=== PATIENT | male | born 1980 | race Caucasian/White ===

== ENCOUNTER 2023-11-05 10:36 | Emergency (ER) | payer OTHER, MEDICAID, SELFPAY ==
[2023-11-05] VITALS (17 sets, daily range): BP systolic 135–156; BP diastolic 85–108; PULSE 54–102; RESP 16–18; TEMP 36.6; O2SAT 84–100; BMI 28.1
[2023-11-05] MEDS: DROPERIDOL 5 MG/2 ML VIAL 0.625 MG IV (12:26)
[2023-11-05] MEDS: SODIUM CHLORIDE 0.9% 1,000 ML 1000 ML IV (12:27)
[2023-11-05] MEDS: diphenhydrAMINE 50 MG/ML VIAL 25 MG IV (12:28)
[2023-11-05] MEDS: ACETAMINOPHEN 325 MG TABLET 975 MG PO (12:54)
[2023-11-05] MEDS: LORazepam 0.5 MG TABLET 1 MG PO (13:08)
[2023-11-05 13:21] LABS: RBC Urine 0-1/HPF (0-5/HPF); Urine Volume 10mL (spun)
[2023-11-05 13:22] LABS: Bacteria Urine Occasional (0-1); Mucus Urine 2+ (Negative); Squamous Epithelial Cell Urine 0-1 /HPF (0-5/HPF); WBC Urine 5-10/HPF (0-5/HPF)
--- NOTE | 2023-11-05 13:58 | ED_ITS ---
HPI - Headache General Chief Complaint: Headache Stated Complaint: Hurt Neck/Migraine Time Seen by Provider: 11/05/23 13:00 History of Present Illness HPI Narrative: 43-year-old man with a history of headaches comes in complaining of headache and neck pain. Says the neck pain has been ongoing for about 1 week, is not associated with trauma he has had no chiropractic manipulation. Headache got worse yesterday, noted at that time he also felt dizzy and felt like his eyes were ?crossing?. No visual changes no numbness or weakness or difficulty with speech associated with this. He has not been having fevers. He did have nausea and sweats when he had those symptoms yesterday, the dizziness has now resolved. He has not taking a blood thinner. He has been using ibuprofen for the pain and he reports he took several of them last night. He has not anticoagulated and says he does not have a primary care provider. Related Data Previous Rx's Medication Instructions Recorded lorazepam 0.5 mg tablet 0.5 mg PO TID PRN neck spasm #7 11/05/23 tabs Allergies Allergy/AdvReac Type Severity Reaction Status Date / Time No Known Drug Allergies Allergy Verified 11/05/23 12:19 Exam Narrative Exam Narrative: Alert, no acute distress HEENT: Normocephalic, atraumaitic moist mucus membranes, pupils were equal round and reactive extraocular movements are intact with no nystagmus Neck: Supple no midline tenderness, no cervical adenopathy, no carotid bruit, has some paraspinal spasm on the left side. Lungs: Clear to ascultaion, no respiratory distress Heart: Regular rhythm and rate no murmur Abdomen: Normal bowel sounds, soft and nontender Extremeties: Full range of motion no deformity Neuro: Alert and oriented, normal speech moves x4, speech is clear, [id number] is normal Initial Vital Signs Initial Vital Signs: Vital Signs Pulse Rate 65 11/05/23 10:42 Pulse Oximetry 99 11/05/23 10:42 Course Orders Ordered: ED Orders 11/05/23 12:30 Urine Culture Stat Urine Microscopic Stat 11/05/23 13:58 CT head/brain wo con Stat 11/05/23 14:42 CT angio head and neck Stat Discontinued Medications Acetaminophen (Acetaminophen 325 Mg Tablet) 975 mg PO NOW ONE Stop: 11/05/23 12:39 Last Admin: 11/05/23 12:54 Dose: 975 mg Documented By: RB Diphenhydramine HCl (Diphenhydramine 50 Mg/Ml Vial) 25 mg IV NOW ONE Stop: 11/05/23 12:14 Last Admin: 11/05/23 12:28 Dose: 25 mg Documented By: RB Droperidol (Droperidol 5 Mg/2 Ml Vial) 0.625 mg IV NOW ONE Stop: 11/05/23 12:14 Last Admin: 11/05/23 12:26 Dose: 0.625 mg Documented By: RB Sodium Chloride (Normal Saline 0.9%) 1,000 mls @ 1,000 mls/hr IV BOLUS ONE Stop: 11/05/23 13:12 Last Infusion: 11/05/23 13:35 Dose: Infused Documented By: Admin: 11/05/23 12:27 Dose: 1,000 mls/hr Documented By: RB Ketorolac Tromethamine (Ketorolac 30 Mg/Ml Vial) 15 mg IV NOW ONE Stop: 11/05/23 12:14 Last Admin: 11/05/23 12:35 Dose: Not Given Documented By: RB Lorazepam (Lorazepam 0.5 Mg Tablet) 1 mg PO NOW ONE Stop: 11/05/23 13:01 Last Admin: 11/05/23 13:08 Dose: 1 mg Documented By: RB Oxycodone HCl (Oxycodone Ir 5 Mg Tablet) 5 mg PO NOW ONE Stop: 11/05/23 16:37 Last Admin: 11/05/23 16:42 Dose: 5 mg Documented By: RB Vital Signs Vital signs: Vital Signs - 8 hr 11/05/23 10:42 11/05/23 10:43 11/05/23 10:43 Temperature Pulse Rate 65 63 Respiratory Rate Blood Pressure 135/91 H Pulse Oximetry 99 99 Oxygen Delivery Method 11/05/23 10:52 11/05/23 11:00 11/05/23 11:30 Temperature 97.8 F Pulse Rate 67 66 54 L Respiratory Rate 16 Blood Pressure 135/91 H Pulse Oximetry 99 99 99 Oxygen Delivery Method Room Air 11/05/23 12:00 11/05/23 12:00 11/05/23 12:30 Temperature Pulse Rate 69 Respiratory Rate Blood Pressure 135/90 146/97 H Pulse Oximetry 98 Oxygen Delivery Method 11/05/23 12:30 11/05/23 13:00 11/05/23 13:33 Temperature Pulse Rate 79 69 Respiratory Rate Blood Pressure Pulse Oximetry 100 100 98 Oxygen Delivery Method 11/05/23 13:34 11/05/23 13:34 11/05/23 13:35 Temperature Pulse Rate 74 68 Respiratory Rate 18 Blood Pressure 145/85 H 145/85 H Pulse Oximetry 98 98 Oxygen Delivery Method Room Air 11/05/23 14:51 11/05/23 14:53 11/05/23 14:53 Temperature Pulse Rate 70 Respiratory Rate Blood Pressure 156/108 H Pulse Oximetry 84 L 99 Oxygen Delivery Method 11/05/23 15:00 11/05/23 15:01 11/05/23 15:01 Temperature Pulse Rate 61 57 L Respiratory Rate Blood Pressure 138/88 Pulse Oximetry 97 97 Oxygen Delivery Method 11/05/23 15:39 11/05/23 15:39 11/05/23 16:00 Temperature Pulse Rate 60 102 H Respiratory Rate Blood Pressure 145/88 H Pulse Oximetry 100 100 Oxygen Delivery Method 11/05/23 16:00 Temperature Pulse Rate Respiratory Rate Blood Pressure 149/96 H Pulse Oximetry Oxygen Delivery Method MDM - Headache Lab Data Labs: Lab Results 11/05/23 Range/Units 12:30 Urine RBC 0-1/hpf (0-5/HPF) Urine WBC 5-10/hpf H (0-5/HPF) Ur Squamous Epith Cells 0-1 /hpf (0-5/HPF) Urine Bacteria Occasional (0-1) (None) Urine Mucus 2+ H (Negative) Vol Urine Centrifuged 10ml (spun) Urine Dip Bedside Urine Glucose Negative Bedside Urine Bilirubin - Negative Bedside Urine Ketone +/- 5 Urine Specific [place] 1.025 Bedside Urine Occult Blood - Negative Bedside Urine pH 6.0 Bedside Urine Protein - Negative Bedside Urine Urobilinogen - Negative Bedside Urine Nitrite - Negative Bedside Urine Leukocytes - Negative Esterase Imaging Data CT scan - head: My Impression: Independently reviewed, no acute hemorrhage possible old cerebellar stroke Radiologist's Impression: [address] [place] [id number] Scan Report Signed Patient: Moustapha Tang MR#: [id number] : 1980 Acct:[id number] Age/Sex: 43 / M Date of Service: 11/05/23 Loc: ED Accession Number: [id number] Procedure: CT head/brain wo con Ordering Provider: Saul Dunbar MD PROCEDURE: CT HEAD/BRAIN WO CON INDICATIONS: headache, severe TECHNIQUE: Noncontrast 4.5 mm thick angled axial sections acquired from the foramen magnum to the vertex, with coronal and sagittal reformats. For radiation dose reduction, the following was used: automated exposure control, adjustment of mA and/or kV according to patient size. COMPARISON: None. FINDINGS: Image quality: Diagnostic. Patient motion is noted. CSF spaces: Basal cisterns are patent. No extra-axial fluid collections. Ventricles are normal in size and shape. Brain: Suggestion of old infarction involving left cerebellum with moderate size area of encephalomalacia. No midline shift. No intracranial masses or hemorrhage. Salomon-white matter interface is normal. Skull and face: Calvarium and visualized facial bones are intact, without suspicious lesions. Sinuses: Visualized sinuses and mastoids are clear. IMPRESSION: 1. No CT evidence of acute intracranial abnormalities. 2. Suggestion of old infarction involving left inferior cerebellum with encephalomalacia. Dictated by: Anand Crain M.D. on 11/05/2023 at 14:33 Approved by: Anand Crain M.D. on 11/05/2023 at 14:34 CT angio head and neck: Radiologist's Impression: [place] [address] CT Scan Report Signed Patient: Moustapha Tang MR#: [id number] : 1980 Acct:[id number] Age/Sex: 43 / M Date of Service: 11/05/23 Loc: ED Accession Number: [id number] Procedure: CT angio head and neck Ordering Provider: Saul Dunbar MD PROCEDURE: CT ANGIO HEAD AND NECK INDICATIONS: neck pain with evidence of prior cerebellar infarct TECHNIQUE: After the administration of intravenous contrast, 1 mm thick sections acquired from the aortic arch through the [place] of [place]. 3-dimensional okltdqf-hylknydnx-rgmclwmcrz (MIP) and/or volume rendering reformats were acquired of the central intracranial vasculature and neck separately. For radiation dose reduction, the following was used: automated exposure control, adjustment of mA and/or kV according to patient size. COMPARISON: [facility], CT, CT HEAD/BRAIN WO CON, 11/05/2023, 14:17. FINDINGS: Image quality: Limited by bolus timing, with venous contamination. BRAIN: CSF spaces: Ventricles are normal in size and shape. Basal cisterns are patent. No extra-axial fluid collections. Brain: Left cerebellar encephalomalacia is again seen, chronic. Skull and face: Calvarium and facial bones appear intact, without suspicious lesions. Orbits appear normal. Sinuses: Sinuses and mastoids are clear. HEAD CT ANGIOGRAPHY: Anterior circulation: Intracranial internal carotid arteries are normal in size and flow. The flow within the paired anterior cerebral arteries is normal and symmetric. The flow within the middle cerebral arteries is normal and symmetric. The anterior communicating artery is seen. No aneurysms are seen. Posterior circulation: Visualized portions of the vertebral arteries demonstrate normal caliber, and join to form a normal appearing basilar artery. Flow within the posterior cerebral arteries is normal and symmetric. No aneurysms are seen. NECK CT ANGIOGRAPHY: Carotid system: The great vessels demonstrate a conventional anatomy as they arise from the aortic arch. The origins of the common carotid arteries appear patent. The common carotid arteries demonstrate normal caliber and courses. The bifurcation regions demonstrate atherosclerotic irregularity with calcification. There is relatively prominent soft plaque seen involving the left carotid bifurcation region, as on series 5, image 129, with associated 50% narrowing of the left internal carotid artery origin. The more distal internal carotid arteries demonstrate normal course and caliber. Posterior circulation: The origins of the vertebral arteries both appear widely patent. The more superior extracranial portions of both vertebral arteries also demonstrate normal courses and calibers. The right vertebral artery is dominant to the left. Soft tissues: Visualized neck soft tissues demonstrate no suspicious abnormalities. Bones: No suspicious bony lesions. Visualized cervical spine appears normally aligned. [id number] lower cervical spine degenerative change can be seen. IMPRESSION: No significant intracranial arterial abnormality is seen. Focal soft plaque with 50% narrowing can be seen involving the origin the left internal carotid artery. No additional significant abnormality of the neck arteries can be seen. No findings of dissection. Any quantitative measurements of stenosis were performed using NASCET criteria. Dictated by: David Welsh M.D. on 11/05/2023 at 14:58 Approved by: David Welsh M.D. on 11/05/2023 at 15:01 MDM Narrative Medical decision making narrative: 43-year-old male presenting with headache and left-sided neck pain. Patient does have a history of chronic headaches although he reports the neck pain is unusual for him yesterday he also had some dizziness and nausea associated with the neck pain and headache. He has not had any recent trauma to the head or neck. He does not have any known history of stroke. He has not anticoagulated. I considered the possibility of hemorrhage or acute stroke, I considered the possibility of meningitis but do not suspect that, I considered the possibility of a vertebral or carotid dissection. CT head did show what appeared to be an old cerebellar stroke. Based on description of encephalomalacia in my own review of the CT findings I do not think that this is an event that happened yesterday. His neurologic exam is reassuring, there is no appreciable neurolo gic deficit. I did obtain a CT angio head and neck to address the possibility of a dissection. No dissection or large vessel occlusion is seen. Recommended symptomatic care, he did have some muscle spasm I ordered a small prescription of lorazepam for this. Also provided advice about using ibuprofen and acetaminophen. Patient was informed of the findings imaging and my recommendation that he establish primary care in his local community to address today's findings. Discharge Plan Departure Clinical Impression: Acute neck pain Headache Qualifiers: Headache type: unspecified Headache chronicity pattern: acute headache Intractability: not intractable Qualified Code(s): R51.9 - Headache, unspecified Activity Restrictions/Additional Instructions: Evaluation today suggest that you have a headache related to muscle spasm from your neck. I would 1st recommend that use ibuprofen 600 mg 3 times a day take this with food. Do this regularly. You may also use acetaminophen (Tylenol) Acetaminophen (tylenol) should be dosed at 650 mg every 4 hours or 1000mg every 6 hours. It can be given as needed but is more effective if given on a scheduled basis. Total daily dose should not exceed 4,000mg. If you were prescribed norco (hydrocodone/apap) or percocet (oxycodone/apap) each tablet of these contains 325 mg of acetaminophen and should be included when calculating daily dose. I have also provided a prescription for just a few lorazepam that you can use as needed for muscle spasm. This medication will cause drowsiness, do not drive operate machinery or drink alcohol after taking it. Try to keep your neck and a fairly neutral position. Evaluation today showed evidence of a remote stroke and you have a low level of arterial narrowing not likely be causing symptoms at this point in your neck. It is going to be important that going forward you establish with a primary care provider and modify risk factors such as cholesterol and blood pressure. If you have a severe headache with vomiting, onset of numbness weakness or other acute symptoms follow up with your closest emergency department. Prescriptions: New lorazepam 0.5 mg tablet 0.5 mg PO TID PRN (Reason: neck spasm) Qty: 7 0RF Referrals: Miscellaneous,Doctor, MD [Primary Care Provider] - Stand Alone Forms: Patient Portal/API
--- NOTE | 2023-11-05 14:42 | DI.CT.S_ITS ---
PROCEDURE: CT ANGIO HEAD AND NECK INDICATIONS: neck pain with evidence of prior cerebellar infarct TECHNIQUE: After the administration of intravenous contrast, 1 mm thick sections acquired from the aortic arch through the [place] of Bull. 3-dimensional ekidmjb-apgsomuun-dquicoocbr (MIP) and/or volume rendering reformats were acquired of the central intracranial vasculature and neck separately. For radiation dose reduction, the following was used: automated exposure control, adjustment of mA and/or kV according to patient size. COMPARISON: [facility], CT, CT HEAD/BRAIN WO CON, 11/05/2023, 14:17. FINDINGS: Image quality: Limited by bolus timing, with venous contamination. BRAIN: CSF spaces: Ventricles are normal in size and shape. Basal cisterns are patent. No extra-axial fluid collections. Brain: Left cerebellar encephalomalacia is again seen, chronic. Skull and face: Calvarium and facial bones appear intact, without suspicious lesions. Orbits appear normal. Sinuses: Sinuses and mastoids are clear. HEAD CT ANGIOGRAPHY: Anterior circulation: Intracranial internal carotid arteries are normal in size and flow. The flow within the paired anterior cerebral arteries is normal and symmetric. The flow within the middle cerebral arteries is normal and symmetric. The anterior communicating artery is seen. No aneurysms are seen. Posterior circulation: Visualized portions of the vertebral arteries demonstrate normal caliber, and join to form a normal appearing basilar artery. Flow within the posterior cerebral arteries is normal and symmetric. No aneurysms are seen. NECK CT ANGIOGRAPHY: Carotid system: The great vessels demonstrate a conventional anatomy as they arise from the aortic arch. The origins of the common carotid arteries appear patent. The common carotid arteries demonstrate normal caliber and courses. The bifurcation regions demonstrate atherosclerotic irregularity with calcification. There is relatively prominent soft plaque seen involving the left carotid bifurcation region, as on series 5, image 129, with associated 50% narrowing of the left internal carotid artery origin. The more distal internal carotid arteries demonstrate normal course and caliber. Posterior circulation: The origins of the vertebral arteries both appear widely patent. The more superior extracranial portions of both vertebral arteries also demonstrate normal courses and calibers. The right vertebral artery is dominant to the left. Soft tissues: Visualized neck soft tissues demonstrate no suspicious abnormalities. Bones: No suspicious bony lesions. Visualized cervical spine appears normally aligned. [id number] lower cervical spine degenerative change can be seen. IMPRESSION: No significant intracranial arterial abnormality is seen. Focal soft plaque with 50% narrowing can be seen involving the origin the left internal carotid artery. No additional significant abnormality of the neck arteries can be seen. No findings of dissection. Any quantitative measurements of stenosis were performed using NASCET criteria. Dictated by: David Welsh M.D. on 11/05/2023 at 14:58 Approved by: David Welsh M.D. on 11/05/2023 at 15:01
--- NOTE | 2023-11-05 15:26 | PC.NURSE ---
management services technician asked provider if he wanted any labs done prior CT angio. Provider declined to have any labs done at this time. No new orders issued.
[2023-11-05] MEDS: OXYCODONE IR 5 MG TABLET PO (16:42)
== END 2023-11-05 16:56 | disposition home or self-care (01) ==
PROVIDERS: Emergency Provider Emergency Medicine
DX: M54.2 Cervicalgia (principal); R51.9 Headache, unspecified
CPT/HCPCS: 36415; 70450; 70496; 70498; 81003; 81015; 87086; 96361; 96374; 96375; 99284; J1200; J1790; J1885; Q9967